=== PATIENT | male | born 1955 | race Caucasian/White ===

== ENCOUNTER 2020-04-16 15:20 | Emergency (ER) | payer OTHER ==
[2020-04-16 15:29] VITALS: RESP 18; TEMP 99.4
[2020-04-16] MEDS ORDERED: SODIUM CHLORIDE 0.9% 1,000 ML IV STA (16:03)
[2020-04-16] MEDS ORDERED: SODIUM CHLORIDE 0.9% 500 ML 500 ML IV ONE ×2 (16:03→16:56)
[2020-04-16 16:19] LABS: Glucose,Whole Blood 496 mg/dL (75-99)
[2020-04-16 16:24] LABS: Basophils # (A) 0.1 k/uL (0-0.2); Basophils % (A) 1 %; Eosinophils # (A) 0.2 k/uL (0-0.7); Eosinophils % (A) 3 %; HCT 41.8 % (39.0-53.0); HGB 14.2 gm/dL (13.0-17.5); Lymphocytes % (A) 13 %; MCH 30.6 pg (25.0-35.0); MCHC 34.1 g/dL (31.0-37.0); MCV 89.9 fL (80.0-100.0); Mean Platelet Volume 6.6; Monocytes # (A) 0.4 k/uL (0-1.0); Monocytes % (A) 6 %; Neutrophils # (A) 5.9 k/uL (1.3-7.7); Neutrophils % (A) 77 %; Platelet Count 289 k/uL (150-450); RBC 4.65 m/uL (4.30-5.90); WBC 7.7 k/uL (3.8-10.6)
[2020-04-16 16:26] LABS: Appearance,Urine Clear (Clear); Bilirubin,Urine Negative (Negative); Blood,Urine Negative (Negative); Color,Urine Light Yellow; Glucose,Urine (UA) 4+ (Negative); Ketones,Urine Negative (Negative); Leukocyte Esterase,Urine Negative (Negative); Nitrite,Urine Negative (Negative); PH, Urine 5.5 (5.0-8.0); Protein,Urine Negative (Negative); Specific Gravity,Urine 1.031 (1.001-1.035); Urobilinogen,Urine <2.0 mg/dL (<2.0)
[2020-04-16 16:34] LABS: ALT 18 U/L (4-49); AST 28 U/L (17-59); African American GFR (CKD) >90 (>60 ml/min/1.73 sqM); Albumin 4.1 g/dL (3.5-5.0); Alcohol <10 mg/dL; Alkaline Phosphatase 163 U/L (38-126); Anion Gap 12 mmol/L; Blood Urea Nitrogen 16 mg/dL (9-20); Calcium 8.9 mg/dL (8.4-10.2); Carbon Dioxide 21 mmol/L (22-30); Chloride 97 mmol/L (98-107); Non-African American GFR(CKD) >90 (>60 ml/min/1.73 sqM); Potassium 5.6 mmol/L (3.5-5.1); Sodium 130 mmol/L (137-145); Total Bilirubin 0.7 mg/dL (0.2-1.3); Total Protein 7.2 g/dL (6.3-8.2)
[2020-04-16 16:37] LABS: Amphetamine Screen,Urine Not Detected (NotDetected); Barbiturate Screen,Urine Not Detected (NotDetected); Benzodiazepines Screen,Urine Not Detected (NotDetected); Cocaine Screen,Urine Not Detected (NotDetected); Methadone Screen, Urine Not Detected (NotDetected); Opiate Screen,Urine Not Detected (NotDetected); Oxycodone Screen, Urine Not Detected (NotDetected); Phencyclidine Screen,Urine Not Detected (NotDetected); Tricyclic Antidepressant,Urine Not Detected (NotDetected); Urn Cannabinoid Scrn Not Detected (NotDetected)
[2020-04-16 16:42] LABS: Glucose 565 mg/dL (74-99)
[2020-04-16 16:50] LABS: INR 0.9 (<1.2); Prothrombin Time 9.5 sec (9.0-12.0)
[2020-04-16 16:53] LABS: Partial Thromboplastin Time 21.3 sec (22.0-30.0)
[2020-04-16] MEDS ORDERED: INSULIN REGULAR 100 UNIT/ML VIAL IV ONE (16:55)
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
--- NOTE | 2020-04-16 16:58 | XR ---
EXAMINATION TYPE: XR chest 2V DATE OF EXAM: 04/16/2020 COMPARISON: NONE HISTORY: Altered mental status. TECHNIQUE: Frontal and lateral views of the chest are obtained. FINDINGS: There is no focal air space opacity, pleural effusion, or pneumothorax seen. The cardiac silhouette size is within normal limits. The osseous structures are intact. IMPRESSION: No acute cardiopulmonary process.
[2020-04-16 18:04] LABS: Glucose,Whole Blood 355 mg/dL (75-99)
--- NOTE | 2020-04-16 18:15 | CT ---
EXAM: CT brain wo con CLINICAL HISTORY: Altered mental status. COMPARISON: None TECHNIQUE: Contiguous axial noncontrast images of the brain were obtained. Coronal and sagittal refor mats were generated and reviewed. Automated dose reduction technique was used for this exam. FINDINGS: There is no evidence for intracranial hemorrhage, mass effect, midline shift or acute large vessel te rritory infarct. There is moderate parenchymal volume loss and mild white matter disease. Ventricular size and configuration is within normal limits for degree of parenchymal volume. The paranasal sinuses demonstrate complete opacification of the right maxillary sinus. There is moder ate opacification of the left mastoid air cells. No evidence for calvarial fracture. IMPRESSION: No acute intracranial abnormality.
[2020-04-16 18:30] VITALS: BP 146/93; PULSE 90
[2020-04-16 18:40] LABS: Glucose,Whole Blood 417 mg/dL (75-99)
== END 2020-04-16 18:50 | disposition home or self-care (01) ==
LOC: EC 15:20
DX: E86.0 Dehydration (principal); R00.0 Tachycardia, unspecified; E11.65 Type 2 diabetes mellitus with hyperglycemia; Z90.49 Acquired absence of other specified parts of digestive tract; R41.82 Altered mental status, unspecified
CPT/HCPCS: 36415; 70450; 71046; 80053; 80306; 80320; 81003; 84484; 85025; 85610; 85730; 93005; 96360; 96361; 99285

== ENCOUNTER 2020-05-19 16:02 | Emergency (ER) | payer MEDICARE ==
[2020-05-19 16:06] VITALS: BP 171/95; PULSE 121; RESP 18; TEMP 98.4
[2020-05-19] MEDS ORDERED: LIDOCAINE 1% INJ 10MG/ML (20 ML MDV) SQ ONE (17:37)
[2020-05-19] MEDS ORDERED: cefTRIAXone 1,000 MG VIAL (IM USE) IM STA (17:37)
--- NOTE | 2020-05-19 17:40 | ED ---
Skin/Abscess/FB HPI - General Chief complaint: Skin/Abscess/Foreign Body Stated complaint: cyct on back of head Time Seen by Provider: 05/19/20 17:18 Source: patient Mode of arrival: ambulatory Limitations: no limitations - History of Present Illness Initial comments: Patient is a 64-year-old male with history of diabetes, presenting to the emergency Department with complaints of a possible abscess in the back of his head. Patient states he noticed the pain increased yesterday and did feel like it was draining a little bit. He denies any fevers or chills, no nausea or vomiting. He states he has had these in the past. He denies a headache or neck pain. He has no further complaints at this time. - Related Data Previous Rx's Medication Instructions Recorded metFORMIN HCL 500 mg PO BID #28 tablet 04/16/20 Cephalexin [Keflex] 500 mg PO Q6HR 7 Days #28 cap 05/19/20 Sulfamethox-Tmp 800-160Mg [Bactrim 1 each PO Q12HR 7 Days #14 tab 05/19/20 Ds] Allergies Allergy/AdvReac Type Severity Reaction Status Date / Time No Known Allergies Allergy Verified 04/16/20 17:46 Review of Systems ROS Statement: Those systems with pertinent positive or pertinent negative responses have been documented in the HPI. ROS Other: All systems not noted in ROS Statement are negative. Past Medical History Past Medical History: Diabetes Mellitus History of Any Multi-Drug Resistant Organisms: None Reported Past Surgical History: Appendectomy Past Psychological History: No Psychological Hx Reported Smoking Status: Never smoker Past Alcohol Use History: Occasional Past Drug Use History: None Reported General Exam - General Exam Comments Initial Comments: GENERAL: Patient is well-developed and well-nourished. Patient is nontoxic and in no acute distress. HEAD: Atraumatic, normocephalic. EYES: Pupils equal round and reactive to light, extraocular movements intact, sclera anicteric, conjunctiva are normal. Eyelids were unremarkable. ENT: TMs normal, nares patent, oropharynx clear without exudates. Moist mucous membranes. NECK: Normal range of motion, supple without lymphadenopathy or JVD. LUNGS: Unlabored respirations. Breath sounds clear to auscultation bilaterally and equal. No wheezes rales or rhonchi. HEART: Regular rate and rhythm without murmurs, rubs or gallops. ABDOMEN: Soft, nontender, normoactive bowel sounds. No guarding, no rebound. No masses appreciated. : Deferred MUSCULOSKELETAL: Normal extremities with adequate strength and normal range of motion, no pitting or edema. No clubbing or cyanosis. NEUROLOGICAL: Patient is alert and oriented x 3. Motor and sensory are also intact. Cranial nerves II through XII grossly intact. Symmetrical smile. Normal speech, normal gait. PSYCH: Normal mood, normal affect. SKIN: Warm, Dry, normal turgor, no rashes. Patient has a 1 cm abscess to the posterior right scalp, there is pustules noted. Limitations: no limitations Course Vital Signs 05/19/20 16:03 Temperature 98.4 F Pulse Rate 121 H Respiratory 18 Rate Blood Pressure 171/95 O2 Sat by Pulse 97 Oximetry Procedures - [place] Protocol (Time Out) Procedure Performed:: I&D Performing Provider: Cami Cristobal Nurse: Del Eastman Timeout Date: 05/19/20 Timeout Time: 17:40 Patient Identification (2 identifiers required): Chart, Verbal, Arm Band, Name Patient/Legal Folding Machine Feeder has Confirmed: Identity, Site, Procedure, Consent Site: posterior right scalp Site Marked: Yes Site Verified With Patient/Guardian: Yes Final Confirmation: Procedure, Site, Laterality, Confirmed w/Provider - Incision & Drainage Consent Obtained: verbal consent, written consent Indication: Abscess Site: scalp (Posterior right scalp) Size (cm): 1 Anesthetic Used: lidocaine 1% Amount (mLs): 2 I&D Cleaning Method: Alcohol Wipe Scalpel Used: #11 I&D Drainage Obtained: Pus, Blood Culture Obtained?: Yes Patient Tolerated Procedure: well Medical Decision Making - Medical Decision Making Patient is 64-year-old male here with one similar abscess to his right posterior scalp, pustules noted. No fevers. Patient is diabetic. I did perform an I&D after verbal and written consent. Large amount of purulent fluid was drained. Patient does report improvement in his symptoms. I will give him 1 g Rocephin here in the ER and start him on Bactrim and Keflex. Wound culture is pending. He is to follow-up with his PCP. Patient is stable for discharge. Patient is in agreement with this plan of care. Return parameters were discussed with the patient and they verbalized understanding. Case discussed with Dr. Dean. Disposition Clinical Impression: Scalp abscess Disposition: HOME SELF-CARE Condition: Stable Instructions (If sedation given, give patient instructions): Abscess Incision and Drainage (ED) Additional Instructions: Please return to the Emergency Department if symptoms worsen or any other concerns. Take both antibiotics as prescribed. Keep area clean and dry. Follow-up with your PCP. Prescriptions: Sulfamethox-Tmp 800-160Mg [Bactrim Ds] 1 each PO Q12HR 7 Days #14 tab Cephalexin [Keflex] 500 mg PO Q6HR 7 Days #28 cap Is patient prescribed a controlled substance at d/c from ED?: No Referrals: None,Stated [Primary Care Provider] - 1-2 days Time of Disposition: 18:13
== END 2020-05-19 18:15 | disposition home or self-care (01) ==
LOC: EC 16:02
DX: L02.811 Cutaneous abscess of head [any part, except face] (principal); E11.9 Type 2 diabetes mellitus without complications
CPT/HCPCS: 87070; 87205; 99283; 96372; 10060; J2001; J0696

== ENCOUNTER 2020-07-13 04:03 | Emergency (ER) | payer MEDICARE ==
[2020-07-13 04:12] VITALS: BP 154/84; PULSE 113; RESP 20; TEMP 98
[2020-07-13] MEDS ORDERED: SULFAMETH-TMP DS STARTER PACK 2 TAB BTL PO STA (04:22)
[2020-07-13] MEDS ORDERED: SULFAMETHOX-TMP 800-160MG 1 EACH TAB PO STA (04:22)
[2020-07-13] MEDS ORDERED: AMOXIC-POT CLAV 875-125MG 1 EACH TAB PO STA (04:22)
[2020-07-13] MEDS ORDERED: AMOXIC-POT CLAV 875MG STARTER PACK 2 TAB BTL PO STA (04:22)
--- NOTE | 2020-07-13 04:22 | ED ---
Recheck HPI - General Chief Complaint: Skin/Abscess/Foreign Body Stated Complaint: neck abscess Time Seen by Provider: 07/13/20 04:07 Source: patient, family Mode of arrival: ambulatory Limitations: no limitations - Related Data Previous Rx's Medication Instructions Recorded metFORMIN HCL 500 mg PO BID #28 tablet 04/16/20 Cephalexin [Keflex] 500 mg PO Q6HR 7 Days #28 cap 05/19/20 Sulfamethox-Tmp 800-160Mg [Bactrim 1 each PO Q12HR 7 Days #14 tab 05/19/20 Ds] Allergies Allergy/AdvReac Type Severity Reaction Status Date / Time No Known Allergies Allergy Verified 07/13/20 04:12 Review of Systems ROS Statement: Those systems with pertinent positive or pertinent negative responses have been documented in the HPI. ROS Other: All systems not noted in ROS Statement are negative. Past Medical History Past Medical History: Diabetes Mellitus History of Any Multi-Drug Resistant Organisms: None Reported Past Surgical History: Appendectomy Past Psychological History: No Psychological Hx Reported Smoking Status: Never smoker Past Alcohol Use History: Occasional Past Drug Use History: None Reported General Exam Limitations: no limitations Course Vital Signs 07/13/20 04:09 Temperature 98 F Pulse Rate 113 H Respiratory 20 Rate Blood Pressure 154/84 O2 Sat by Pulse 99 Oximetry Disposition Clinical Impression: Cellulitis, neck Disposition: HOME SELF-CARE Condition: Good Instructions (If sedation given, give patient instructions): Cellulitis (ED) Is patient prescribed a controlled substance at d/c from ED?: No Referrals: None,Stated [Primary Care Provider] - 1-2 days
== END 2020-07-13 04:48 | disposition home or self-care (01) ==
LOC: EC 04:03
DX: L03.221 Cellulitis of neck (principal); E11.9 Type 2 diabetes mellitus without complications; Z79.84 Long term (current) use of oral hypoglycemic drugs
CPT/HCPCS: 99282